=== PATIENT | male | born 1960 | race Caucasian/White ===

== ENCOUNTER 2017-01-02 07:42 | Emergency (ER) | payer BC ==
[~2017-01-02] VITALS: Ht 177.8 cm; Wt 125.5 kg
[2017-01-02] MEDS ORDERED: TOUJ1.2I SC (07:59)
[2017-01-02] MEDS ORDERED: RAMI5CA PO (07:59)
[2017-01-02] MEDS ORDERED: ANDR1.62 TOP (07:59)
[2017-01-02] MEDS ORDERED: TRUL0.5I SC (07:59)
[2017-01-02] MEDS ORDERED: METF750T PO (07:59)
[2017-01-02] MEDS ORDERED: ROSU10TA2 PO (07:59)
[2017-01-02] MEDS ORDERED: GLYB25TA PO (07:59)
[2017-01-02] MEDS ORDERED: NS 1,000 ML IV SCH (08:09)
[2017-01-02 08:29] LABS: BASO % 0.5 % (0.0-1.0); EOS # 0.4 K/mm3 (0.0-0.50); EOS % 4.9 % (0.0-3.0); LARGE UNSTAINED CELL # 0.1 K/mm3 (0.0-0.4); LARGE UNSTAINED CELL % 0.9 % (0.0-4.0); LYMPH # 1.9 K/mm3 (1.5-4.5); LYMPH % 22.2 % (24.0-44.0); MEAN CORPUSCULAR HEMOGLOBIN 28.6 pg (27.0-33.0); MEAN CORPUSCULAR HGB CONC 34.2 g/dl (32.0-36.5); MEAN CORPUSCULAR VOLUME 83.7 fl (80.0-96.0); MONO # 0.4 K/mm3 (0.0-0.8); MONO % 4.3 % (0.0-5.0); NEUTROPHILS # 5.7 K/mm3 (1.8-7.7); NEUTROPHILS % 67.2 % (36.0-66.0); PLATELET COUNT, AUTOMATED 195 k/mm3 (150-450); RED CELL DISTRIBUTION WIDTH 12.7 % (11.5-14.5); WHITE BLOOD COUNT 8.4 K/mm3 (4.0-10.0)
[2017-01-02] MEDS ORDERED: MORPHINE 4 MG/ML 1ML SYRINGE IV ONE (08:45)
[2017-01-02] MEDS ORDERED: ONDANSETRON 4MG/2ML VIAL (J2405) IV ONE (08:45)
[2017-01-02 09:35] LABS: ALBUMIN 3.7 GM/DL (3.2-5.2); ALBUMIN/GLOBULIN RATIO 1.19 (1.00-1.93); ALKALINE PHOSPHATASE 78 U/L (45-117); ALT/SGPT 54 U/L (12-78); ANION GAP 8 MEQ/L (8-16); AST/SGOT 21 U/L (15-37); BILIRUBIN,DIRECT 0.2 MG/DL (0.0-0.2); BILIRUBIN,TOTAL 0.7 MG/DL (0.2-1.0); BLOOD UREA NITROGEN 12 MG/DL (7-18); CALCIUM LEVEL 9.2 MG/DL (8.5-10.1); CARBON DIOXIDE LEVEL 28 MEQ/L (21-32); CHLORIDE LEVEL 102 MEQ/L (98-107); CREATININE FOR GFR 0.86 MG/DL (0.70-1.30); GLOMERULAR FILTRATION RATE > 60.0 (>56); GLUCOSE, FASTING 203 MG/DL (70-105); POTASSIUM SERUM 4.4 MEQ/L (3.5-5.1); SODIUM LEVEL 138 MEQ/L (136-145); TOTAL PROTEIN 6.8 GM/DL (6.4-8.2)
[2017-01-02 10:03] VITALS: BP 150/92
--- NOTE | 2017-01-02 11:28 | REP ---
RIGHT UPPER QUADRANT SONOGRAPHY: HISTORY: Question gallstone pancreatitis. Comparison CT study April 14, 2014. FINDINGS: Scan quality is inhibited substantially by patient body habitus, bowel gas and poor insonation of the liver. Liver is echogenic and these findings are compatible with moderate diffuse fatty infiltration. No focal liver lesion is appreciated. There is no evidence of ascites. A normal sized thin-walled gallbladder is seen and no stones are identified. The common bile duct is at the upper range of normal measuring 0.7 cm. The pancreas is essentially obscured by bowel gas. No right renal abnormality is seen. The right kidney measures 12.8 x 5.8 x 6.4 cm. IMPRESSION: Limited scan quality. Fatty infiltration of the liver. No other abnormality. Common bile duct borderline at 0.7 cm. Signed by Oswaldo Morin MD 01/02/2017 03:37 P
[2017-01-02] MEDS ORDERED: ISOVUE-370 76% 100ML VIAL (Q9967) As Ordered ONE (11:56)
--- NOTE | 2017-01-02 12:34 | REP ---
CT abdomen and pelvis with IV but without oral contrast: History: Pancreatitis. Comparison study April 14, 2014. CT contrast dose: 100 mL of Isovue [address] findings: Digital preliminary [place] man radiograph demonstrates a few air filled loops of small bowel as well as gas in the transverse colon and descending colon question mild ileus. The lung bases are clear on axial CT images. There is mild diffuse fatty infiltration of the liver. No focal liver lesion is seen. No calculus or other gallbladder abnormality is seen by CT. No adrenal lesion is observed. There is an accessory splenule. The spleen is otherwise unremarkable. The kidneys enhance symmetrically and are morphologically intact. The pancreas is morphologically normal. This does not exclude pancreatitis. No cyst or peripancreatic edema is seen. No retroperitoneal mass or adenopathy is observed. Normal appendix is seen in the right lower quadrant. Urinary bladder, seminal vesicles and prostate are unremarkable. There is mild diverticulosis in the sigmoid colon without CT evidence of diverticulitis. No bony destructive lesion is seen. Impression: Mild diffuse fatty infiltration of the liver. Mild ileus pattern in the bowel gas. Morphologically normal gallbladder and pancreas by CT imaging. This does not exclude pancreatitis. There are a few left colonic diverticula. Signed by Oswaldo Morin MD 01/02/2017 03:38 P
--- NOTE | 2017-01-02 20:13 | ECGEPIP ---
Stationary ECG Study [facility] - ED Test Date: 2017-01-02 Pat Name: DOE LOPEZ Department: Room: - Gender: M Sock Mender: JSteve : 1960 Requested By: Tania Boyd Order Number: [id number] Reading MD: Tania Body Measurements Intervals [place] Rate: 66 P: 26 [place]: 284 QRS: 19 QRSD: 90 T: 30 QT: 387 QTc: 406 Interpretive Statements SINUS RHYTHM WITH FIRST DEGREE AV BLOCK NO PRIOR FOR COMPARISON Electronically Signed On 01-02-2017 20:13:26 EDT by Tania Boyd
== END 2017-01-02 13:18 | disposition home or self-care (01) ==
LOC: M ED 09:34
DX: K85.90 Acute pancreatitis without necrosis or infection, unspecified (principal); K76.0 Fatty (change of) liver, not elsewhere classified; I10 Essential (primary) hypertension; E11.9 Type 2 diabetes mellitus without complications; I51.9 Heart disease, unspecified; E78.00 Pure hypercholesterolemia, unspecified; Z87.442 Personal history of urinary calculi; Z79.899 Other long term (current) drug therapy
CPT/HCPCS: 36415; 74177; 76705; 80048; 80076; 83690; 85025; 93005; 96374; 96375; 99283; J2405; Q9967

== ENCOUNTER → 2017-01-04 | Outpatient (CLI) | payer BC ==
[~2017-01-04] MED LIST: AMBI12.52 PO; ANDR1.62 TOP; ASPI81TA85 PO; ASPI81TAEC PO; GLYB25TA PO; METF750T PO; RAMI5CA PO; ROSU10TA2 PO; TOUJ1.2I SC; TRUL0.5I SC; TYLE500T78 PO
--- NOTE | 2017-01-04 10:11 | REP ---
Hepatobiliary scan and gallbladder ejection fraction: History: Pancreatitis. Technique: 6.5 mCi of technetium-99m mebrofenin was injected and sequential anterior images are acquired. 65 minutes after the mebrofenin injection, the patient consumed 8 ounces Ensure and an additional 60 minutes of imaging was acquired. Regions of interest are plotted around the gallbladder. Findings: The initial hepatocellular parenchymal uptake phase is normal and homogeneous. Intra- and extra-hepatic bile ducts and duodenum are labeled by the 15 -minute image. The gallbladder is first labeled on the 25 -minute image. There is normal washout from the liver parenchyma into the gallbladder and small intestine on subsequent images. The gallbladder ejection fraction is 20 %. Values greater than 35 % are considered normal with this technique. Impression: Normal hepatobiliary scan and decreased gallbladder ejection fraction. Signed by Oswaldo Morin MD 01/04/2017 10:02 A
== END ==
LOC: M RAD 07:04
PROVIDERS: ATTEND Emergency Medicine
DX: R10.11 Right upper quadrant pain (principal)

== ENCOUNTER → 2017-01-04 | Outpatient (REF) | payer BC ==
[2017-01-04 18:04] LABS: AMYLASE 29 U/L (25-115)
== END ==
LOC: M LAB REF 16:28
PROVIDERS: ATTEND Internal Medicine
DX: K85.90 Acute pancreatitis without necrosis or infection, unspecified (principal)

== ENCOUNTER 2017-01-05 01:22 | Inpatient (IN) | payer BC ==
[~2017-01-05] VITALS: Ht 177.8 cm; Wt 122.5 kg
[~2017-01-05 01:22] MED LIST changes: -AMBI12.52 PO; -ASPI81TA85 PO; -ASPI81TAEC PO; -TYLE500T78 PO
[2017-01-05] MEDS ORDERED: ASPI81TA85 PO (01:29)
[2017-01-05 02:13] LABS: BASO % 0.6 % (0.0-1.0); EOS # 0.3 K/mm3 (0.0-0.50); LARGE UNSTAINED CELL # 0.1 K/mm3 (0.0-0.4); LARGE UNSTAINED CELL % 0.7 % (0.0-4.0); LYMPH % 22.4 % (24.0-44.0); MEAN CORPUSCULAR HEMOGLOBIN 29.3 pg (27.0-33.0); MEAN CORPUSCULAR HGB CONC 34.8 g/dl (32.0-36.5); MONO # 0.5 K/mm3 (0.0-0.8); MONO % 5.4 % (0.0-5.0); NEUTROPHILS % 67.9 % (36.0-66.0); PLATELET COUNT, AUTOMATED 201 k/mm3 (150-450); RED CELL DISTRIBUTION WIDTH 12.7 % (11.5-14.5); WHITE BLOOD COUNT 8.8 K/mm3 (4.0-10.0)
[2017-01-05 02:29] LABS: ALBUMIN 3.8 GM/DL (3.2-5.2); ALBUMIN/GLOBULIN RATIO 1.31 (1.00-1.93); ALKALINE PHOSPHATASE 86 U/L (45-117); ALT/SGPT 61 U/L (12-78); AMYLASE 61 U/L (25-115); ANION GAP 9 MEQ/L (8-16); AST/SGOT 39 U/L (15-37); BILIRUBIN,DIRECT 0.2 MG/DL (0.0-0.2); BLOOD UREA NITROGEN 15 MG/DL (7-18); CALCIUM LEVEL 8.8 MG/DL (8.5-10.1); CARBON DIOXIDE LEVEL 29 MEQ/L (21-32); CHLORIDE LEVEL 101 MEQ/L (98-107); GLOMERULAR FILTRATION RATE > 60.0 (>56); GLUCOSE, FASTING 161 MG/DL (70-105); POTASSIUM SERUM 3.9 MEQ/L (3.5-5.1); SODIUM LEVEL 139 MEQ/L (136-145); TOTAL PROTEIN 6.7 GM/DL (6.4-8.2)
[2017-01-05] MEDS ORDERED: MORPHINE 4 MG/ML 1ML SYRINGE IV ONE (02:30)
[2017-01-05] MEDS ORDERED: NS 1,000 ML IV ONE (02:30)
--- NOTE | 2017-01-05 03:40 | REPUSA ---
CLINICAL HISTORY: Pancreatitis. TECHNIQUE: Multiple axial, sagittal and coronal CT images were obtained through the abdomen and pelvi s without administration of oral or IV contrast material. COMMENTS: Comparison is made to the prior exam performed on 01/02/2017. The liver is enlarged with decreased attenuation without mass or defect. There is no intra or extrahe patic biliary ductal dilatation. The spleen is normal. The gallbladder is within normal limits. Incre ased bilateral tamra-pancreatic fat stranding. There is no evidence of adrenal mass. The kidneys are normal in size, shape and configuration. No renal or ureteral calculi are identified. There is no hydroureter or hydronephrosis. There is no evidence for appendicitis. There is no bowel wall thickening. No evidence for small or la rge bowel obstruction. There is no evidence of abdominal ascites or lymphadenopathy. There is no evidence of intrinsic or extrinsic bladder mass. There is no pelvic ascites or lymphadeno gabe. Uncomplicated diverticulosis. Mild large bowel fecal stasis. Images of the lung bases show no evidence of pleural or parenchymal mass. There are no pleural effusi ons. The bony structures are free of lytic or blastic lesions. Multilevel degenerative changes are seen in volving the thoracolumbar spine. Scattered calcifications are seen involving the aorta and major branches compatible with atherosclero sis. IMPRESSION: Hepatomegaly fatty liver infiltration. This is unchanged. Increased pancreatitis. No evidence of associated fluid collection. Nondilated biliary tree. Thank you for your kind referral of this patient.
[2017-01-05] MEDS ORDERED: DEXTROSE 50% 50 ML SYRINGE IV PRN (04:15)
[2017-01-05] MEDS ORDERED: MORPHINE 2 MG/ML 1ML SYRINGE IV PRN (04:15)
[2017-01-05] MEDS ORDERED: GLUCOSE 4 GM CHEW TABLET PO PRN (04:15)
[2017-01-05] MEDS ORDERED: KETOROLAC 30 MG/ML VIAL (J1885) IV PRN (04:15)
[2017-01-05] MEDS ORDERED: GLUCAGON FOR INJ 1 MG VIAL (J1610) SC PRN (04:15)
[2017-01-05] MEDS ORDERED: ACETAMINOPHEN TAB 650MG DOSE (2X325MG) PO PRN (04:15)
[2017-01-05] MEDS ORDERED: ONDANSETRON 4MG/2ML VIAL (J2405) IV PRN (04:15)
[2017-01-05] MEDS ORDERED: RAMI5CA PO (04:22)
[2017-01-05] MEDS ORDERED: TYLE500T78 PO (04:22)
[2017-01-05] MEDS ORDERED: METF750T PO (04:22)
[2017-01-05] MEDS ORDERED: GLYB25TA PO (04:22)
[2017-01-05] MEDS ORDERED: ASPI81TAEC PO (04:22)
[2017-01-05] MEDS ORDERED: TOUJ1.2I SC (04:22)
[2017-01-05] MEDS ORDERED: ROSU10TA2 PO (04:22)
[2017-01-05] MEDS ORDERED: TRUL0.5I SC (04:22)
--- NOTE | 2017-01-05 04:56 | HPEPDOC ---
General Date of Admission 01/05/17 Primary Care Physician: Jr Sandoval Collins Attending Physician: ROSSY GURROLA MD Chief Complaint The patient is a 56-year-old male admitted with a reason for visit of Abdominal Pain. Source: Patient Exam Limitations: No limitations History of Present Illness 56-year-old male with past medical history of hypertension, dyslipidemia, insulin-dependent diabetes mellitus, and obesity presented to the ER with a chief complaint of right upper quadrant abdominal pain. The patient states that the pain initially started 3 weeks ago and was associated with eating greasy food. However this culminated 3 days ago and the patient came to the ER for further evaluation at that time. The patient was diagnosed with pancreatitis and a CT scan of the abdomen at that time revealed no acute findings. An ultrasound of the liver was noted to be limited, but did not visualize any stones in the gallbladder. The patient was subsequently discharged home and advised to follow a liquid diet and follow-up with his primary care physician. The patient states that he felt better over the first 48 hours, however his right upper quadrant abdominal pain returned last night into early this morning. A repeat CT scan of the abdomen here revealed an increase in the degree of pancreatitis. The patient denies any alcohol abuse, taking any new medications, or any recent trauma. In addition, the patient denies any other acute complaints of fevers, chills, shortness of breath, chest pain, recent travel, sick contacts, or any vomiting/diarrhea. Home Medications Scheduled (Rosuvastatin Calcium) 10 Mg Tab 10 MG PO QHS (Reported) (Toujeo Solostar) 300 Unit/Ml Inj 54 UNIT SC DAILY (Reported) (Trulicity) 1.5 Mg/0.5 Ml Inj 1.5 MG SC 1XWK (Reported) SUNDAYS Aspirin (Aspirin EC) 81 Mg Tabec 81 MG PO QHS (Reported) Glyburide (Glyburide) 2.5 Mg Tab 2.5 MG PO WM (Reported) Metformin Hydrochloride (Metformin HCl ER) 750 Mg Tab 1,500 MG PO QPM (Reported ) Ramipril (Ramipril) 5 Mg Cap 5 MG PO QHS (Reported) Scheduled PRN Acetaminophen (Tylenol Extra Strength) 500 Mg Tab 1,000 MG PO Q6H PRN PRN PAIN ( Reported) Allergies Coded Allergies: No Known Drug Allergy (Verified Allergy, Unknown, 01/05/17) Past Medical History Medical History As noted in HPI. Surgical History Tonsillectomy at age of 17. Family History Great grandmother had diabetes mellitus, father has hypertension Social History * Smoker: Denies Alcohol: occationally Drugs: denies Used to work in [employer], functionally independent. Review of Symptoms Other systems 10 point review of systems negative unless otherwise specified in HPI. Physical Examination General Exam: Positive: Alert, Cooperative, No Acute Distress ENT Exam: Positive: Atraumatic, Mucous membr. moist/pink Neck Exam: Negative: JVD Chest Exam: Positive: Clear to auscultation, Normal air movement Heart Exam: Positive: Normal S1, Normal S2, Rate Normal Abdomen Exam: Positive: Other (no guarding, rigidity, or rebound tenderness noted), Soft, Negative: Tenderness Extremity Exam: Negative: Swelling, Tenderness Psych Exam: Positive: Oriented x 3 Vital Signs Vital Signs Date Time Temp Pulse Resp B/P Pulse Ox O2 Delivery O2 Flow Rate FiO2 01/05/17 03:02 20 01/05/17 01:25 97.8 75 147/93 96 Laboratory Data Labs 24H Laboratory Tests 2 01/05/17 02:01: Aspartate Amino Transf (AST/SGOT) 39H, Alanine Aminotransferase (ALT/SGPT) 61, Alkaline Phosphatase 86, Total Bilirubin 1.0, Direct Bilirubin 0.2, Albumin 3.8 , Albumin/Globulin Ratio 1.31, Amylase Level 61, Anion Gap 9, White Blood Count 8.8, Red Blood Count 5.22, Hemoglobin 15.3, Hematocrit 43.9, Mean Corpuscular Volume 84.0, Mean Corpuscular Hemoglobin 29.3, Mean Corpuscular Hemoglobin Concent 34.8, Red Cell Distribution Width 12.7, Platelet Count 201, Neutrophils (%) (Auto) 67.9H, Lymphocytes (%) (Auto) 22.4L, Monocytes (%) (Auto) 5.4H, Eosinophils (%) (Auto) 3.0, Basophils (%) (Auto) 0.6, Neutrophils # (Auto) 6.0, Lymphocytes # (Auto) 2.0, Monocytes # (Auto) 0.5, Eosinophils # (Auto) 0.3, Basophils # (Auto) 0.0, Calcium Level 8.8, Glomerular Filtration Rate > 60.0, Large Unclassified Cells # 0.1, Large Unclassified Cells % 0.7, Lipase 1182H, Total Protein 6.7 CBC/BMP Laboratory Tests 01/05/17 02:01 Red Blood Count 5.22, Mean Corpuscular Volume 84.0, Mean Corpuscular Hemoglobin 29.3, Mean Corpuscular Hemoglobin Concent 34.8, Red Cell Distribution Width 12.7 , Neutrophils (%) (Auto) 67.9 H, Lymphocytes (%) (Auto) 22.4 L, Monocytes (%) ( Auto) 5.4 H, Eosinophils (%) (Auto) 3.0, Basophils (%) (Auto) 0.6, Neutrophils # (Auto) 6.0, Lymphocytes # (Auto) 2.0, Monocytes # (Auto) 0.5, Eosinophils # ( Auto) 0.3, Basophils # (Auto) 0.0 Plan / VTE VTE Prophylaxis Ordered?: Yes Plan Plan Acute pancreatitis of unclear etiology Admit to med/surg unit Lipase level of [address] scan of the abdomen and pelvis notable for increased pancreatitis when compared to previous CT from 01/02 Liver ultrasound from 01/02 noted to be limited, although no gallstones were identified at the time-Will repeat ultrasound of the liver Hepatobiliary nuclear scan study done as an outpatient noted from 01/04: Normal hepatobiliary scan and decreased gallbladder ejection fraction Will order serum triglyceride level No new medications added to the patient's regimen, and the patient's current medication regimen is likely not attributable to a possible cause for pancreatitis IV fluid hydration, analgesics ordered We will keep the patient nothing by mouth for now and continue to monitor his progress Insulin-dependent Diabetes mellitus Patient takes 54 units of Toujeo daily, however since the patient will be nothing by mouth we will decrease this to 20 units of Levemir in the a.m. which can be titrated as deemed necessary Insulin sliding scale for additional coverage with every 6 hour fingersticks while nothing by mouth Hypertension, stable Continue Ramipril Dyslipidemia Continue statin Obesity, fatty liver noted on CT of the abdomen/ultrasound of liver Counseled the patient on dietary discretion, exercise DVT prophylaxis-Lovenox subcutaneously The patient will be admitted under the service of Dr. Gurrola, who will begin to follow the patient on 01/05/17. SAHRA MÁRQUEZ MD Jan 05, 2017 04:55
[2017-01-05 05:03] LABS: TRIGLYCERIDES LEVEL 182 MG/DL (<150)
[2017-01-05 05:10] VITALS: BP 130/78
[2017-01-05] MEDS: NS 1,000 ML IV SCH ×3 (05:14→21:42)
[2017-01-05] MEDS: HumaLOG INSULIN (NovoLOG) PER UNIT SC SCH ×3 (06:01→18:00)
--- NOTE | 2017-01-05 08:24 | REP ---
Right upper quadrant sonography: History: Question gallstones. Comparison is made with right upper quadrant sonography done just 3 days ago January 02, 2017. Scanning through the right upper quadrant of the abdomen demonstrates poorly insonated echogenic liver consistent with fatty infiltration of the liver. No focal liver lesion is seen. There is some tenderness to scanning over the gallbladder but no stone, wall thickening, or polyp is identified. Common bile duct is unchanged at 0.7 cm in greatest diameter. The pancreas is obscured by abdominal gas. There is no evidence of ascites or right renal abnormality. The right kidney measures 12.5 x 6.6 x 7.0 cm. Impression: Evidence fatty infiltration of the liver. No other abnormality seen. No change from comparison study January 02, 2017. Signed by Oswaldo Morin MD 01/05/2017 12:46 P
[2017-01-05] MEDS ORDERED: ENOXAPARIN 30 MG/0.3 ML SYR (J1650) SC SCH (09:00)
[2017-01-05] MEDS: ENOXAPARIN 40 MG/0.4 ML SYRINGE (J1650) SC SCH (09:08)
[2017-01-05] MEDS: LEVEMIR (INSULIN DETEMIR) 1 UNITS/0.01ML SC SCH (09:10)
[2017-01-05 14:00] VITALS: BP 147/86
[2017-01-05] MEDS: ASPIRIN 81 MG ENTERIC TAB PO SCH (20:20)
[2017-01-05] MEDS ORDERED: RAMIPRIL 5 MG CAP PO SCH (21:00)
[2017-01-05] MEDS ORDERED: ROSUVASTATIN 10 MG TAB (CRESTOR) PO SCH (21:00)
[2017-01-05 22:00] VITALS: BP 122/80
[2017-01-06] MEDS: HumaLOG INSULIN (NovoLOG) PER UNIT SC SCH ×5 (00:38→23:41)
[2017-01-06] MEDS: NS 1,000 ML IV SCH ×2 (04:29→11:50)
[2017-01-06 05:38] LABS: BASO % 0.9 % (0.0-1.0); EOS # 0.4 K/mm3 (0.0-0.50); EOS % 6.1 % (0.0-3.0); LARGE UNSTAINED CELL # 0.1 K/mm3 (0.0-0.4); LARGE UNSTAINED CELL % 1.1 % (0.0-4.0); LYMPH # 1.8 K/mm3 (1.5-4.5); LYMPH % 29.9 % (24.0-44.0); MEAN CORPUSCULAR HEMOGLOBIN 28.7 pg (27.0-33.0); MEAN CORPUSCULAR HGB CONC 34.1 g/dl (32.0-36.5); MEAN CORPUSCULAR VOLUME 84.1 fl (80.0-96.0); MONO # 0.3 K/mm3 (0.0-0.8); MONO % 4.9 % (0.0-5.0); NEUTROPHILS # 3.3 K/mm3 (1.8-7.7); NEUTROPHILS % 57.1 % (36.0-66.0); PLATELET COUNT, AUTOMATED 178 k/mm3 (150-450); RED CELL DISTRIBUTION WIDTH 12.6 % (11.5-14.5); WHITE BLOOD COUNT 5.8 K/mm3 (4.0-10.0)
[2017-01-06 05:47] LABS: ALBUMIN 3.2 GM/DL (3.2-5.2); ALBUMIN/GLOBULIN RATIO 1.07 (1.00-1.93); ALKALINE PHOSPHATASE 84 U/L (45-117); ALT/SGPT 56 U/L (12-78); ANION GAP 6 MEQ/L (8-16); AST/SGOT 34 U/L (15-37); BILIRUBIN,TOTAL 1.3 MG/DL (0.2-1.0); BLOOD UREA NITROGEN 9 MG/DL (7-18); CALCIUM LEVEL 8.2 MG/DL (8.5-10.1); CARBON DIOXIDE LEVEL 28 MEQ/L (21-32); CHLORIDE LEVEL 105 MEQ/L (98-107); CREATININE FOR GFR 0.79 MG/DL (0.70-1.30); GLOMERULAR FILTRATION RATE > 60.0 (>56); GLUCOSE, FASTING 111 MG/DL (70-105); MAGNESIUM LEVEL 1.8 MG/DL (1.8-2.4); POTASSIUM SERUM 4.1 MEQ/L (3.5-5.1); SODIUM LEVEL 139 MEQ/L (136-145); TOTAL PROTEIN 6.2 GM/DL (6.4-8.2)
[2017-01-06 06:00] VITALS: BP 105/60
[2017-01-06] MEDS: ENOXAPARIN 40 MG/0.4 ML SYRINGE (J1650) SC SCH (08:50)
[2017-01-06] MEDS: LEVEMIR (INSULIN DETEMIR) 1 UNITS/0.01ML SC SCH (08:51)
--- NOTE | 2017-01-06 10:31 | IPNPDOC ---
Text Note Date of Service The patient was seen on 01/06/17. NOTE Subjective: Pt states abd pain has resolved. No N/V. Objective: Vitals: (see below) General: No acute distress, laying comfortably in bed. HEENT: Moist mucous membranes. Neck: No JVD or lymphadenopathy Cardiac: RRR, No murmurs Pulm: Clear to auscultation b/l. No wheezing, rhonchi Abd: NT/ND + BS. obese Ext: No edema or cyanosis Labs (see below) Images: CT Abd/pelvis 01/05/17 IMPRESSION: Hepatomegaly fatty liver infiltration. This is unchanged. Increased pancreatitis. No evidence of associated fluid collection. Nondilated biliary tree. Assessment/Plan 1. Acute Pancreatitis - Lipase >1,000. No complications on CT abd/pelvis. No cholelithiasis. TG not elevated. ? Idiopathic. Suspicion for medication causes, especially Trulicity, which has been known to cause pancreatitis even during clinical trials. Other less common causes of pancreatitis include ramipril and statin, which are temporarily held. LFTs wnl. Advance diet to clears, and as tolerated. D/c IVF. 2. DM - SSI. Levemir 3. HTN - controlled. Ramipril held for now 4. HLD - statin held for now 5. Obesity - counseling on exercise/diet control DVT prophy - Enoxaparin Plan to d/c pt in the next 24 hrs if tolerating diet. DVT prophy: Dispo: VS,Fishbone, I+O VS, Fishbone, I+O Laboratory Tests 01/06/17 05:03 Calcium Level 8.2 L, Aspartate Amino Transf (AST/SGOT) 34, Alanine Aminotransferase (ALT/SGPT) 56, Alkaline Phosphatase 84, Total Bilirubin 1.3 H, Total Protein 6.2 L, Albumin 3.2, Red Blood Count 5.04, Mean Corpuscular Volume 84.1, Mean Corpuscular Hemoglobin 28.7, Mean Corpuscular Hemoglobin Concent 34.1 , Red Cell Distribution Width 12.6, Neutrophils (%) (Auto) 57.1, Lymphocytes (% ) (Auto) 29.9, Monocytes (%) (Auto) 4.9, Eosinophils (%) (Auto) 6.1 H, Basophils (%) (Auto) 0.9, Neutrophils # (Auto) 3.3, Lymphocytes # (Auto) 1.8, Monocytes # (Auto) 0.3, Eosinophils # (Auto) 0.4, Basophils # (Auto) 0.0 Vital Signs Date Time Temp Pulse Resp B/P Pulse Ox O2 Delivery O2 Flow Rate FiO2 01/06/17 08:00 Room Air 01/06/17 06:00 97.9 65 16 105/60 92 I&O- Last 24 Hours up to 6 AM 01/06/17 05:59 Intake Total 2050 ml Output Total 2300 ml Balance -250 ml ROSSY GURROLA MD Jan 06, 2017 10:31
[2017-01-06] MEDS ORDERED: NS 1,000 ML IV SCH (10:32)
[2017-01-06] MEDS ORDERED: AMBI12.52 PO (11:18)
[2017-01-06] MEDS ORDERED: zolPIDEM CR 6.25MG TABLET (AMBIEN CR) PO PRN (11:45)
[2017-01-06 14:00] VITALS: BP 132/82
[2017-01-06] MEDS: ASPIRIN 81 MG ENTERIC TAB PO SCH (20:08)
[2017-01-06 22:00] VITALS: BP 124/78
[2017-01-07 06:00] VITALS: BP 130/72
[2017-01-07 06:15] LABS: BASO % 0.6 % (0.0-1.0); EOS # 0.4 K/mm3 (0.0-0.50); EOS % 5.8 % (0.0-3.0); LARGE UNSTAINED CELL # 0.1 K/mm3 (0.0-0.4); LARGE UNSTAINED CELL % 1.3 % (0.0-4.0); LYMPH # 1.6 K/mm3 (1.5-4.5); LYMPH % 25.6 % (24.0-44.0); MEAN CORPUSCULAR HEMOGLOBIN 30.6 pg (27.0-33.0); MEAN CORPUSCULAR HGB CONC 36.2 g/dl (32.0-36.5); MEAN CORPUSCULAR VOLUME 84.4 fl (80.0-96.0); MONO # 0.5 K/mm3 (0.0-0.8); NEUTROPHILS # 3.8 K/mm3 (1.8-7.7); NEUTROPHILS % 59.7 % (36.0-66.0); PLATELET COUNT, AUTOMATED 196 k/mm3 (150-450); RED CELL DISTRIBUTION WIDTH 12.5 % (11.5-14.5); WHITE BLOOD COUNT 6.4 K/mm3 (4.0-10.0)
[2017-01-07] MEDS: HumaLOG INSULIN (NovoLOG) PER UNIT SC SCH (06:25)
[2017-01-07 06:36] LABS: ALBUMIN 3.3 GM/DL (3.2-5.2); ALBUMIN/GLOBULIN RATIO 1.14 (1.00-1.93); ALKALINE PHOSPHATASE 85 U/L (45-117); ALT/SGPT 58 U/L (12-78); ANION GAP 7 MEQ/L (8-16); AST/SGOT 39 U/L (15-37); BILIRUBIN,TOTAL 1.1 MG/DL (0.2-1.0); BLOOD UREA NITROGEN 8 MG/DL (7-18); CALCIUM LEVEL 8.3 MG/DL (8.5-10.1); CARBON DIOXIDE LEVEL 28 MEQ/L (21-32); CHLORIDE LEVEL 104 MEQ/L (98-107); CREATININE FOR GFR 0.84 MG/DL (0.70-1.30); GLOMERULAR FILTRATION RATE > 60.0 (>56); GLUCOSE, FASTING 118 MG/DL (70-105); MAGNESIUM LEVEL 1.9 MG/DL (1.8-2.4); SODIUM LEVEL 139 MEQ/L (136-145); TOTAL PROTEIN 6.2 GM/DL (6.4-8.2)
[2017-01-07] MEDS ORDERED: HumaLOG INSULIN (NovoLOG) PER UNIT SC SCH ×2 (07:30→21:00)
[2017-01-07] MEDS: ENOXAPARIN 40 MG/0.4 ML SYRINGE (J1650) SC SCH (09:00)
[2017-01-07] MEDS: LEVEMIR (INSULIN DETEMIR) 1 UNITS/0.01ML SC SCH (09:35)
--- NOTE | 2017-01-07 13:50 | DS.PDOC ---
Discharge Summary General Date of Admission Jan 05, 2017 at 13:42 Date of Discharge 01/07/17 Attending Physician: ROSSY GURROLA MD Discharge Summary PROCEDURES PERFORMED DURING STAY: None. ADMITTING/DISCHARGE DIAGNOSES: 1. Acute pancreatitis 2. Diabetes mellitus 3. Hypertension 4. Hyperlipidemia 5. Obesity COMPLICATIONS/CHIEF COMPLAINT: Pancreatitis. HISTORY OF PRESENT ILLNESS/HOSPITAL COURSE: . This is a 56-year-old male past medical history of diabetes, hypertension, obesity presents complaining of epigastric and upper quadrant pain. Patient was found to have elevated lipase level with a relatively normal CAT scan and discharged from the ER. Patient returns states later complaining of worsening abdominal pain found to have a lipase of 1100, and increased evidence of pancreatitis on his repeat CAT scan of the abdomen and pelvis. The patient's pancreatitis may be related to his medications as well as his GLP- 1 inhibitor. Patient tolerated therapy well, received IV fluids, pain control, and his diet was advanced once his pain had resolved. Patient states he will be exercising and changing his diet in the hopes of losing weight so he can get off of some of his medications. Patient will be following up with his primary care physician soon. He is hemodynamically stable, tolerating diet, and ready to be discharged home. DISCHARGE MEDICATIONS: Please see below. ALLERGIES: Please see below. PHYSICAL EXAMINATION ON DISCHARGE: Vitals: (see below) General: No acute distress, laying comfortably in bed. HEENT: Moist mucous membranes. Neck: No JVD or lymphadenopathy Cardiac: RRR, No murmurs Pulm: Clear to auscultation b/l. No wheezing, rhonchi Abd: NT/ND + BS. obese Ext: No edema or cyanosis LABORATORY DATA: Please see below. IMAGING: Abd u/s 01/05/17 Impression: Evidence fatty infiltration of the liver. No other abnormality seen. No change from comparison study January 02, 2017. CT Abd/pelvis 01/05/17 IMPRESSION: Hepatomegaly fatty liver infiltration. This is unchanged. Increased pancreatitis. No evidence of associated fluid collection. Nondilated biliary tree. PROGNOSIS: Good ACTIVITY: As tolerated. DIET: Low-sodium DISCHARGE PLAN/DISPOSITION: Home, Self-Care. DISCHARGE INSTRUCTIONS: 1. Follow-up with PCP in 1-2 weeks. DISCHARGE CONDITION: Stable. TIME SPENT ON DISCHARGE: Greater than 30 minutes. Vital Signs/I&Os Vital Signs Date Time Temp Pulse Resp B/P Pulse Ox O2 Delivery O2 Flow Rate FiO2 01/07/17 09:00 Room Air 01/07/17 06:00 97.8 65 18 130/72 93 I&O- Last 24 Hours up to 6 AM 01/07/17 06:00 Intake Total 2050 ml Output Total 2900 ml Balance -850 ml Laboratory Data Labs 24H Laboratory Tests 2 01/06/17 17:29: Bedside Glucose (Misc Panel) 118H 01/06/17 23:41: Bedside Glucose (Misc Panel) 133H 01/07/17 05:28: Blood Urea Nitrogen 8, Creatinine 0.84, Sodium Level 139, Potassium Level 4.0, Chloride Level 104, Carbon Dioxide Level 28, Calcium Level 8.3L, Aspartate Amino Transf (AST/SGOT) 39H, Alanine Aminotransferase (ALT/SGPT) 58, Alkaline Phosphatase 85, Total Bilirubin 1.1H, Total Protein 6.2L, Albumin 3.3, Albumin/ Globulin Ratio 1.14, Anion Gap 7L, White Blood Count 6.4, Red Blood Count 4.80, Hemoglobin 14.7, Hematocrit 40.5L, Mean Corpuscular Volume 84.4, Mean Corpuscular Hemoglobin 30.6, Mean Corpuscular Hemoglobin Concent 36.2, Red Cell Distribution Width 12.5, Platelet Count 196, Neutrophils (%) (Auto) 59.7, Lymphocytes (%) (Auto) 25.6, Monocytes (%) (Auto) 7.0H, Eosinophils (%) (Auto) 5.8H, Basophils (%) (Auto) 0.6, Neutrophils # (Auto) 3.8, Lymphocytes # (Auto) 1.6, Monocytes # (Auto) 0.5, Eosinophils # (Auto) 0.4, Basophils # (Auto) 0.0, Glomerular Filtration Rate > 60.0, Large Unclassified Cells # 0.1, Large Unclassified Cells % 1.3, Magnesium Level 1.9 01/07/17 06:15: Bedside Glucose (Misc Panel) 121H CBC/BMP Laboratory Tests 01/07/17 05:28 Calcium Level 8.3 L, Aspartate Amino Transf (AST/SGOT) 39 H, Alanine Aminotransferase (ALT/SGPT) 58, Alkaline Phosphatase 85, Total Bilirubin 1.1 H, Total Protein 6.2 L, Albumin 3.3, Red Blood Count 4.80, Mean Corpuscular Volume 84.4, Mean Corpuscular Hemoglobin 30.6, Mean Corpuscular Hemoglobin Concent 36.2 , Red Cell Distribution Width 12.5, Neutrophils (%) (Auto) 59.7, Lymphocytes (% ) (Auto) 25.6, Monocytes (%) (Auto) 7.0 H, Eosinophils (%) (Auto) 5.8 H, Basophils (%) (Auto) 0.6, Neutrophils # (Auto) 3.8, Lymphocytes # (Auto) 1.6, Monocytes # (Auto) 0.5, Eosinophils # (Auto) 0.4, Basophils # (Auto) 0.0 FSBS Laboratory Tests Test 01/06/17 17:29 01/06/17 23:41 01/07/17 06:15 Range/Units Bedside Glucose (Misc Panel) 118 133 121 70-105 MG/DL Discharge Medications Scheduled (Rosuvastatin Calcium) 10 Mg Tab 10 MG PO QHS (Reported) (Toujeo Solostar) 300 Unit/Ml Inj 54 UNIT SC DAILY (Reported) Aspirin (Aspirin EC) 81 Mg Tabec 81 MG PO QHS (Reported) Glyburide (Glyburide) 2.5 Mg Tab 2.5 MG PO WM (Reported) Metformin Hydrochloride (Metformin HCl ER) 750 Mg Tab 1,500 MG PO QPM (Reported ) Scheduled PRN Zolpidem Tartrate (Ambien Cr) 12.5 Mg Tab 12.5 MG PO QHSP PRN PRN SLEEP ( Reported) Allergies Coded Allergies: No Known Drug Allergy (Verified Allergy, Unknown, 01/05/17) ROSSY GURROLA MD Jan 07, 2017 13:50
== END 2017-01-07 11:20 | disposition home or self-care (01) | DRG 282 ==
LOC: M ED 02:23 → M ED INP 04:08 → M MSPAV 05:08 → OBSVTOIN 13:42
PROVIDERS: ADMIT Internal Medicine; ATTEND Internal Medicine
DX: K85.10 Biliary acute pancreatitis without necrosis or infection (principal); K76.0 Fatty (change of) liver, not elsewhere classified; E11.9 Type 2 diabetes mellitus without complications; E78.5 Hyperlipidemia, unspecified; I10 Essential (primary) hypertension; E66.9 Obesity, unspecified; Z79.82 Long term (current) use of aspirin; Z79.84 Long term (current) use of oral hypoglycemic drugs; Z79.4 Long term (current) use of insulin; Z79.899 Other long term (current) drug therapy

== ENCOUNTER → 2017-05-02 | Outpatient (REF) | payer BC ==
[~2017-05-02] MED LIST changes: +AMBI12.52 PO; +ASPI81TA85 PO; +ASPI81TAEC PO; +TYLE500T78 PO
[2017-05-02 18:47] LABS: AMYLASE 20 U/L (25-115)
== END ==
LOC: M LAB REF 17:29
PROVIDERS: ATTEND Nurse Practitioner Family
DX: K85.90 Acute pancreatitis without necrosis or infection, unspecified (principal); R10.12 Left upper quadrant pain

== ENCOUNTER → 2017-05-04 | Outpatient (REF) | payer BC ==
[2017-05-04 17:45] LABS: AMYLASE 21 U/L (25-115)
== END ==
LOC: M LAB REF 16:40
PROVIDERS: ATTEND Nurse Practitioner Family
DX: K85.90 Acute pancreatitis without necrosis or infection, unspecified (principal); R10.12 Left upper quadrant pain

== ENCOUNTER → 2017-12-03 | Outpatient (CLI) | payer BC ==
[2017-12-03 16:46] LABS: ALBUMIN 3.8 GM/DL (3.2-5.2); ALBUMIN/GLOBULIN RATIO 1.46 (1.00-1.93); ALKALINE PHOSPHATASE 77 U/L (45-117); ALT/SGPT 86 U/L (12-78); ANION GAP 9 MEQ/L (8-16); AST/SGOT 40 U/L (7-37); BILIRUBIN,TOTAL 1.1 MG/DL (0.2-1.0); BLOOD UREA NITROGEN 16 MG/DL (7-18); CALCIUM LEVEL 8.5 MG/DL (8.5-10.1); CARBON DIOXIDE LEVEL 28 MEQ/L (21-32); CHLORIDE LEVEL 99 MEQ/L (98-107); CREATININE FOR GFR 0.88 MG/DL (0.70-1.30); GLOMERULAR FILTRATION RATE > 60.0 (>56); GLUCOSE, FASTING 253 MG/DL (70-100); POTASSIUM SERUM 4.4 MEQ/L (3.5-5.1); SODIUM LEVEL 136 MEQ/L (136-145); TOTAL PROTEIN 6.4 GM/DL (6.4-8.2)
[2017-12-03 17:31] LABS: BASO # 0.1 10^3/uL (0.0-0.2); BASO % 0.7 % (0.0-1.0); EOS # 0.1 10^3/uL (0.0-0.50); EOS % 0.8 % (0.0-3.0); HEMATOCRIT 45.6 % (42.0-52.0); HEMOGLOBIN 15.8 g/dl (14.0-18.0); IMMATURE GRANULOCYTE % 0.5 % (0-3.0); LYMPH % 26.4 % (24.0-44.0); MEAN CORPUSCULAR HEMOGLOBIN 28.6 pg (27.0-33.0); MEAN CORPUSCULAR HGB CONC 34.6 g/dl (32.0-36.5); MEAN CORPUSCULAR VOLUME 82.6 fl (80.0-96.0); MONO # 0.4 10^3/uL (0.0-0.8); MONO % 5.3 % (0.0-5.0); NEUTROPHILS # 5.1 10^3/uL (1.8-7.7); NEUTROPHILS % 66.3 % (36.0-66.0); PLATELET COUNT, AUTOMATED 224 10^3/uL (150-450); RED BLOOD COUNT 5.52 10^6/uL (4.30-6.10); RED CELL DISTRIBUTION WIDTH 12.5 % (11.5-14.5); WHITE BLOOD COUNT 7.7 10^3/uL (4.0-10.0)
[2017-12-06 00:06] LABS: MUMPS VIRUS IgM ANTIBODY <0.80 AU (0.00-0.79)
== END ==
LOC: M WUC 11:41
DX: R22.0 Localized swelling, mass and lump, head (principal)
CPT/HCPCS: 80053

== ENCOUNTER → 2018-02-12 | Outpatient (REF) | payer BC ==
[2018-02-13 17:41] LABS: TESTOSTERONE FREE (DIRECT) 8.4 pg/mL (7.2-24.0)
== END ==
LOC: M LAB REF 12:37
DX: E29.1 Testicular hypofunction (principal)
CPT/HCPCS: 84403

== ENCOUNTER → 2018-07-17 | Outpatient (REF) | payer BC | LOC: M LAB REF 12:23 | DX: J06.9 Acute upper respiratory infection, unspecified (principal) ==

== ENCOUNTER → 2018-08-12 | Outpatient (REF) | payer BC ==
[2018-08-12 12:53] LABS: TESTOSTERONE 240 NG/DL (241-827)
== END ==
LOC: M LAB REF 12:04
DX: E29.1 Testicular hypofunction (principal)
CPT/HCPCS: 84403

== ENCOUNTER → 2020-03-02 | Outpatient (REF) | payer BC ==
[~2020-03-02] MED LIST changes: -ASPI81TA85 PO; +ASPI81TA86 PO; -METF750T PO; +METF750T36 PO; +RAMI1CAP24 PO; -RAMI5CA PO; -ROSU10TA2 PO; +ROSU10TA6 PO
[2020-03-04 05:14] LABS: HERPES ZOSTER, VARICELLA IgG 1484 index (Immune >165); RUBEOLA IgG ANTIBODY >300.0 AU/mL (Immune >16.4)
== END ==
LOC: M LAB REF 18:05
PROVIDERS: ATTEND Internal Medicine
DX: Z11.59 Encounter for screening for other viral diseases (principal)

== ENCOUNTER → 2023-06-01 | Outpatient (CLI) | payer BC ==
[~2023-06-01] MED LIST changes: +ASPI-569 PO; -ASPI81TAEC PO; +GLYB2.5T7 PO; -GLYB25TA PO
== END ==
LOC: M PLAIMG 14:33
PROVIDERS: ATTEND Nurse Practitioner Family
DX: R31.9 Hematuria, unspecified (principal)

== ENCOUNTER 2024-11-03 09:07 | Day surgery (SDC) | payer BC ==
[~2024-11-03] VITALS: Ht 177.8 cm; Wt 117.3 kg
[~2024-11-03 09:07] MED LIST changes: +ALEV220T22 PO; +ASPI81CH33 PO; +FARX1TAB3 PO; +LIDOCAINE 2% 100MG/5ML SDV (FOR ANES.) As Ordered ONE; +OMEP1CAP73 PO; +RAMI10CA64 PO; -RAMI1CAP24 PO; +RAMI5CAP60 PO; -ROSU10TA6 PO; +ROSU10TA61 PO; +TRES100I SC; +fentaNYL 100 MCG/2 ML INJECTION As Ordered ONE; +propofoL 200 MG/20 ML VIAL As Ordered ONE
[2024-11-03 10:18] VITALS: TEMP 98.4
[2024-11-03 10:40] VITALS: BP 115/59; O2SAT 96
== END 2024-11-03 10:52 | disposition home or self-care (01) ==
LOC: M OPP 09:07
PROVIDERS: ATTEND Internal Medicine Gastroenterology
DX: Z12.11 Encounter for screening for malignant neoplasm of colon (principal); K57.30 Diverticulosis of large intestine without perforation or abscess without bleeding; K64.0 First degree hemorrhoids; R12 Heartburn; Z79.4 Long term (current) use of insulin; Z79.82 Long term (current) use of aspirin; Z79.84 Long term (current) use of oral hypoglycemic drugs; Z79.899 Other long term (current) drug therapy
CPT/HCPCS: 43239; 45378; 88305; J3010

== ENCOUNTER 2025-04-24 22:42 | Emergency (ER) | payer BC ==
[~2025-04-24] VITALS: Ht 177.8 cm; Wt 118.2 kg
[~2025-04-24 22:42] MED LIST changes: -AMBI12.52 PO; -LIDOCAINE 2% 100MG/5ML SDV (FOR ANES.) As Ordered ONE; +ZOLP12.561 PO; -fentaNYL 100 MCG/2 ML INJECTION As Ordered ONE; -propofoL 200 MG/20 ML VIAL As Ordered ONE
[2025-04-24 23:12] LABS: BASO # 0.1 10^3/uL (0.0-0.2); BASO % 0.6 % (0.0-1.0); EOS # 0.4 10^3/uL (0.0-0.5); EOS % 4.9 % (0.0-3.0); LYMPH # 2.4 10^3/uL (1.5-5.0); LYMPH % 26.6 % (24.0-44.0); MONO # 0.6 10^3/uL (0.0-0.8); MONO % 7.1 % (2.0-8.0); NEUTROPHILS # 5.3 10^3/uL (1.5-8.5); NEUTROPHILS % 60.3 % (36.0-66.0); PLATELET COUNT, AUTOMATED 217 10^3/uL (150-450)
[2025-04-24 23:27] LABS: INR 0.93
[2025-04-24 23:37] LABS: CK-MB VALUE MASS 9.1 NG/ML (<3.6)
[2025-04-24 23:38] LABS: ALT/SGPT 43 U/L (7.0-40); AST/SGOT 29 U/L (<34); CALCIUM LEVEL 9.0 MG/DL (8.3-10.6); CARBON DIOXIDE LEVEL 29 MMOL/L (20-31); CHLORIDE LEVEL 105 MMOL/L (98-107); CREATININE FOR GFR 0.90 MG/DL (0.70-1.30); GLOMERULAR FILTRATION RATE > 90.0 (>49); POTASSIUM SERUM 4.5 MMOL/L (3.5-5.1); SODIUM LEVEL 143 MMOL/L (136-145)
[2025-04-24 23:48] LABS: CPK CREATINE PHOSPHOKINASE 334 U/L (46-171); MB/CK RELATIVE INDEX 2.72 (< OR =4)
[2025-04-25] MEDS: KETOROLAC 30 MG/ML 1 ML VIAL IV ONE (00:20)
[2025-04-25] MEDS: NS (Normal Saline) 0.9% 1,000 ML IV ONE (00:20)
[2025-04-25 00:38] LABS: KETONE, URINE AUTO RFX NEGATIVE (NEGATIVE); LEUKOCYTE ESTERASE UR AUTO RFX NEGATIVE (NEGATIVE); MUCUS, URINE RFX SMALL (NEGATIVE); NITRITE, URINE AUTO RFX NEGATIVE (NEGATIVE); RBC, URINE AUTO RFX 109 /HPF (0-3); SQUAM EPITHELIAL CELL UR AURFX 0 /HPF (0-6); WBC, URINE AUTO RFX 2 /HPF (0-3)
[2025-04-25] MEDS ORDERED: ONDA-282 PO (02:28)
[2025-04-25] MEDS ORDERED: KETO-204 PO (02:28)
[2025-04-25] MEDS ORDERED: TAMS-18 PO (02:28)
[2025-04-25 02:39] VITALS: BP 135/65; TEMP 98; O2SAT 96
[2025-04-25] MEDS: TAMSULOSIN 0.4 MG CAP PO ONE (02:44)
[2025-04-25] MEDS: OXYCODONE/APAP 5MG/325MG(HOME DOSE PACK) PO ONE (02:45)
== END 2025-04-25 02:56 | disposition home or self-care (01) ==
LOC: M ED 22:42
DX: N20.1 Calculus of ureter (principal); I44.0 Atrioventricular block, first degree; E11.9 Type 2 diabetes mellitus without complications; E78.5 Hyperlipidemia, unspecified; F10.10 Alcohol abuse, uncomplicated; Z79.1 Long term (current) use of non-steroidal anti-inflammatories (NSAID); Z79.4 Long term (current) use of insulin; Z79.84 Long term (current) use of oral hypoglycemic drugs; Z79.899 Other long term (current) drug therapy
CPT/HCPCS: 71045; 74176; 80053; 81001; 82248; 82550; 82553; 83690; 84484; 85025; 85610; 93005; 96361; 96374; 99284; J1885